=== PATIENT | female | born 1960 | race Caucasian/White ===

== ENCOUNTER 2017-11-27 15:01 | Emergency (ER) | payer OTHER ==
[2017-11-27] MEDS ORDERED: ADENOSINE 6 MG/2 ML VIAL ONE (15:14)
--- NOTE | 2017-11-27 15:15 | CPEKG ---
Heart Rate: 178 RR Interval: 337 QRSD Interval: 84 QT Interval: 288 QTC Interval: 496 P [place]: 0 QRS [place]: 71 T Wave [place]: 39 EKG Severity - ABNORMAL ECG - EKG Impression: SUPRAVENTRICULAR TACHYCARDIA EKG Impression: ANTERIOR Q WAVES, POSSIBLY DUE TO LVH EKG Impression: ST DEPRESSION, PROBABLY RATE RELATED Electronically Signed By: Alejandro Goins 27-Nov-2017 16:25:39
[2017-11-27] MEDS ORDERED: ADENOSINE 6 MG/2 ML VIAL IVP ONE (15:17)
[2017-11-27] MEDS ORDERED: NS 1,000 ML IV ONE (15:21)
--- NOTE | 2017-11-27 15:23 | EDPHY ---
H & P Stated Complaint: tachycardia Time Seen by Provider: 11/27/17 15:08 HPI/ROS: CHIEF COMPLAINT: Tachycardia HISTORY OF PRESENT ILLNESS: The patient presents the ED with palpitations characterizes a fast heart rate that began 1 hr prior to arrival. She denies any antecedent chest pain or shortness of breath. The patient has no significant past medical history. 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 The patient denies any asymmetric calf pain or swelling. She denies pleuritic chest pain. She denies recent illness or hospitalization. She has no additional complaints. REVIEW OF SYSTEMS: A comprehensive 10 point review of systems is otherwise negative aside from elements mentioned in the history of present illness. Source: Patient Exam Limitations: No limitations - Personal History Current Tetanus Diphtheria and Acellular Pertussis (TDAP): Yes - Medical/Surgical History Hx Asthma: No Hx Chronic Respiratory Disease: No Hx Diabetes: No Hx Cardiac Disease: No Hx Renal Disease: No Hx Cirrhosis: No Hx Alcoholism: No Hx HIV/AIDS: No Hx Splenectomy or Spleen Trauma: No Other PMH: hysterectomy - Social History Smoking Status: Never smoked - Physical Exam Exam: General Appearance: Alert, no distress Eyes: Pupils equal and round no pallor or injection ENT, Mouth: Mucous membranes moist Respiratory: There are no retractions, lungs are clear to auscultation Cardiovascular: Tachycardic, regular Gastrointestinal: Abdomen is soft and nontender, no masses, bowel sounds normal Neurological: 5/5 strength all 4 extremities Skin: Warm and dry, no rashes Musculoskeletal: Atraumatic Extremities: symmetrical, full range of motion, no clinical evidence of DVT Constitutional: Initial Vital Signs Temperature (C) 36.6 C 11/27/17 15:02 Heart Rate 200 H 11/27/17 15:02 Respiratory Rate 18 11/27/17 15:02 Blood Pressure 160/148 H 11/27/17 15:02 O2 Sat (%) 98 11/27/17 15:02 O2 Delivery Mode Room Air Allergies/Adverse Reactions: No Known Allergies Allergy (Unverified 11/27/17 15:02) Home Medications: Medication Instructions Recorded Fish Oil 1,000 mg Softgel 11/27/17 Medical Decision Making - Diagnostics EKG Interpretation: EKG: Complete interpretation has been separately recorded in the [facility] archive. Summary impression: Supraventricular tachycardia, rate 190 ED Course/Re-evaluation: The patient presents the emergency department with a supraventricular tachycardia. She is neurologically intact and not hypotensive. The patient had an IV established. She was placed on a mortar man. She received 6 mg of adenosine which converted her to a sinus rhythm. The patient was observed in the emergency department without any symptoms of chest pain or shortness of breath following her cardioversion. Post conversion EKG does demonstrate a sinus rhythm with nonspecific T-wave abnormalities. The patient's troponin is normal. The patient's D-dimer is negative which I feel adequately excludes pulmonary embolism. She has no evidence of critical anemia or metabolic derangement. The patient will be discharged home and instructed to follow up with Cardiology as an outpatient. She is instructed to return to the ED for the development of any chest pain or shortness of breath, recurrent tachycardia or other concerns. Differential Diagnosis: Differential diagnosis considered includes SVT, dehydration, thyrotoxicosis, pulmonary embolism, myocardial infarction, anemia, metabolic derangement - Data Points Laboratory Results: Laboratory Results 11/27/17 15:17 11/27/17 15:17 11/27/17 11/27/17 11/27/17 15:17 15:17 15:17 WBC 8.01 10^3/uL 10^3/uL (3.80-9.50) RBC 5.03 10^6/uL 10^6/uL (4.18-5.33) Hgb 15.5 g/dL g/dL (12.6-16.3) Hct 45.7 % % (38.0-47.0) MCV 90.9 fL fL (81.5-99.8) MCH 30.8 pg pg (27.9-34.1) MCHC 33.9 g/dL g/dL (32.4-36.7) RDW 13.0 % % (11.5-15.2) Plt Count 281 10^3/uL 10^3/uL (150-400) MPV 9.1 fL fL (8.7-11.7) Neut % (Auto) 60.4 % % (39.3-74.2) Lymph % (Auto) 32.1 % % (15.0-45.0) [place] % (Auto) 5.7 % % (4.5-13.0) Eos % (Auto) 1.2 % % (0.6-7.6) Baso % (Auto) 0.5 % % (0.3-1.7) Nucleat RBC Rel Count 0.0 % % (0.0-0.2) Absolute Neuts (auto) 4.83 10^3/uL 10^3/uL (1.70-6.50) Absolute Lymphs (auto) 2.57 10^3/uL 10^3/uL (1.00-3.00) Absolute Monos (auto) 0.46 10^3/uL 10^3/uL (0.30-0.80) Absolute Eos (auto) 0.10 10^3/uL 10^3/uL (0.03-0.40) Absolute Basos (auto) 0.04 10^3/uL 10^3/uL (0.02-0.10) Absolute Nucleated RBC 0.00 10^3/uL 10^3/uL (0-0.01) Immature Gran % 0.1 % % (0.0-1.1) Immature Gran # 0.01 10^3/uL 10^3/uL (0.00-0.10) D-Dimer < 0.27 ug/mLFEU ug/mLFEU (0.00-0.50) Sodium 138 mEq/L mEq/L (135-145) Potassium 4.1 mEq/L mEq/L (3.3-5.0) Chloride 108 mEq/L mEq/L (97-110) Carbon Dioxide 21 mEq/l L mEq/l (22-31) Anion Gap 9 mEq/L mEq/L (8-16) BUN 19 mg/dL mg/dL (7-23) Creatinine 0.9 mg/dL mg/dL (0.6-1.0) Estimated GFR > 60 Glucose 143 mg/dL H mg/dL (70-100) Calcium 10.0 mg/dL mg/dL (8.5-10.4) Troponin I < 0.012 ng/mL ng/mL (0.000-0.034) TSH 3.740 uIU/mL uIU/mL (0.465-4.680) Medications Given: Discontinued Medications Adenosine (Adenosine) 6 mg IVP EDNOW ONE Stop: 11/27/17 15:18 Last Admin: 11/27/17 15:21 Dose: 6 mg Sodium Chloride (Ns) 1,000 mls @ 0 mls/hr IV EDNOW ONE; Wide Open PRN Reason: Protocol Stop: 11/27/17 15:22 Last Admin: 11/27/17 15:21 Dose: 1,000 mls Departure - Departure Disposition: Home, Routine, Self-Care Clinical Impression: Supraventricular tachycardia Condition: Good Instructions: Supraventricular Tachycardia (ED) Additional Instructions: 1. Please schedule a follow-up appointment with the supervisor core shop you have been referred to. 2. Return to the ED for any recurrent tachycardia, chest pain, shortness of breath or other concerns. Referrals: Edgardo Treviño MD [Medical Doctor] - As per Instructions
[2017-11-27 15:29] LABS: PLATELET COUNT 281 10^3/uL (150-400)
--- NOTE | 2017-11-27 15:37 | CPEKG ---
Heart Rate: 95 RR Interval: 632 P-R Interval: 200 QRSD Interval: 96 QT Interval: 396 QTC Interval: 498 P [place]: 77 QRS [place]: 68 T Wave [place]: -10 EKG Severity - ABNORMAL ECG - EKG Impression: SINUS RHYTHM EKG Impression: BIATRIAL ABNORMALITIES EKG Impression: CONSIDER RVH W/ SECONDARY REPOL ABNORMALITY Electronically Signed By: Alejandro Goins 27-Nov-2017 16:25:31
[2017-11-27 16:53] VITALS: BP 116/88
== END 2017-11-27 16:51 | disposition home or self-care (01) ==
DX: I47.1 Supraventricular tachycardia (principal); E86.9 Volume depletion, unspecified
CPT/HCPCS: 96374; J0153